=== PATIENT | female | born 1965 | race Caucasian/White ===

== ENCOUNTER → 2021-09-25 10:49 | Outpatient (CLI) | payer OTHER, SELFPAY ==
--- NOTE | ~2021-09-25 | CT_ITS ---
EXAMINATION: CT abdomen pelvis w con DATE: 09/25/2021 11:21 INDICATION: Left upper quadrant abdominal pain. Generalized abdominal pain and cramping. TECHNIQUE: Computed tomography (CT) of the abdomen and pelvis was performed with 100 CC Omnipaque 300 intravenous contrast. Automated exposure control and iterative reconstruction technique were employe d. Exam dose: 1112.93 mGy-cm total exam DLP. COMPARISON: None. FINDINGS: The lung bases are clear of infiltrate or consolidation. Mild cardiomegaly. No pericardial or pleural effusion. There is hepatic steatosis. No hepatic, splenic, pancreatic, and adrenal or renal space-occupying mas s lesion is evident. The gallbladder is present. No gallbladder wall thickening or pericholecystic fl uid or fat stranding. No bile duct or pancreatic duct dilatation. Normal caliber and mild atherosclerotic calcification of the abdominal aorta. No intraperitoneal or r etroperitoneal or pelvic mass lesion or adenopathy or ascites. Small fat-containing umbilical hernia. There is a wid[place] large fat-containing lower mid anterior abdominal wall hernia. The urinary bladder is unremarkable. Retroverted uterus. Uterus and adnexal areas are otherwise unrem arkable. Normal appendix. No bowel obstruction or intraperitoneal free air. No suspicious osteolytic or osteoblastic lesions are noted. IMPRESSION: Hepatic steatosis Retroverted uterus Large fat-containing lower ventral abdominal wall hernia Small fat-containing umbilical hernia Reviewed, dictated and finalized at [facility]. Reviewed, dictated and finalized at location [facility].
[2021-09-25 11:11] LABS: Estimated Glomerular Filt Rate > 60
== END ==
PROVIDERS: PCP Internal Medicine; Visit Provider Internal Medicine
DX: R10.12 Left upper quadrant pain (principal); K76.0 Fatty (change of) liver, not elsewhere classified; K43.9 Ventral hernia without obstruction or gangrene; K42.9 Umbilical hernia without obstruction or gangrene
CPT/HCPCS: 74177; Q9967

== ENCOUNTER → 2021-10-30 08:47 | Outpatient (CLI) | payer OTHER, SELFPAY ==
--- NOTE | ~2021-10-30 | MR_ITS ---
EXAMINATION: MR brain/brain stem wo con DATE: 10/30/2021 09:39 INDICATION: Syncope, unspecified. TECHNIQUE: Magnetic resonance imaging (MRI) of the brain and brainstem was performed without intraven ous contrast. COMPARISON: None. FINDINGS: There is no intracranial hemorrhage, acute infarction, or abnormal intracranial mass lesion . The ventricles are normal in size. The paranasal sinuses are clear. There is a small right mastoid effusion. Vertebral body heights are normal. The paranasal sinuses are clear. IMPRESSION: 1. Normal brain. Reviewed, dictated and finalized at location [facility]. IMPRESSION: 1. Normal brain.
== END ==
PROVIDERS: PCP Internal Medicine; Visit Provider Internal Medicine
DX: R55 Syncope and collapse (principal)
CPT/HCPCS: 70551

== ENCOUNTER → 2022-01-16 10:01 | Outpatient (CLI) | payer OTHER, SELFPAY ==
--- NOTE | ~2022-01-16 | US_ITS ---
EXAMINATION: US abdomen limited DATE: 01/16/2022 10:42 INDICATION: Right upper quadrant abdominal pain. TECHNIQUE: Multiple grayscale and Doppler ultrasound images of the abdomen were obtained. COMPARISON: CT abdomen and pelvis 09/25/2021 FINDINGS: The visualized portions of the head, body, and tail of the pancreas are normal. There is di ffuse hepatic steatosis. No liver surface nodularity. The gallbladder is normal in size. No gallstone s or gallbladder wall thickening. There is no sonographic Myers sign. The common duct is normal and measures 5 mm. IMPRESSION: 1. Diffuse hepatic steatosis. Reviewed, dictated and finalized at location A.
== END ==
PROVIDERS: PCP Internal Medicine; Visit Provider Surgery
DX: R10.11 Right upper quadrant pain (principal); K76.0 Fatty (change of) liver, not elsewhere classified
CPT/HCPCS: 76705

== ENCOUNTER 2022-02-21 07:25 | Outpatient (CLI) | payer OTHER, SELFPAY ==
[2022-02-21 08:05] LABS: Anion Gap 15 mmol/L (8-16); Blood Urea Nitrogen 11 mg/dL (7-17); Calcium 9.5 mg/dL (8.4-10.2); Carbon Dioxide 29 mmol/L (22-30); Chloride 97 mmol/L (98-107); Estimated Glomerular Filt Rate > 60; Glucose 110 mg/dL (65-110); Potassium 3.4 mmol/L (3.4-5.0); Sodium 141 mmol/L (137-145)
== END 2022-02-21 07:26 | disposition home or self-care (01) ==
LOC: ANHLAB 07:27
PROVIDERS: PCP Internal Medicine; Visit Provider Anesthesiology
DX: K43.0 Incisional hernia with obstruction, without gangrene (principal); I10 Essential (primary) hypertension; Z01.818 Encounter for other preprocedural examination
CPT/HCPCS: 36415; 80048; 86850; 86900; 86901

== ENCOUNTER 2022-02-25 00:09 | Day surgery (SDC) | payer OTHER, SELFPAY ==
[2022-02-18 15:35] VITALS: BMI 45.1
--- NOTE | 2022-02-18 15:36 | PC.NURSE ---
Addendum entered by Carisa Hernandez RN 02/20/22 12:30: 02/20/22 PT CALLED AND INSTRUCTED TO TAKE METOPROLOL THE MORNING OF SURGERY WITH A SIP OF WATER Original Note: Report to the Outpatient Waiting Room, entrance under the [facility] located off [facility], at time 0730 on date _02/25/22_. OR Time: __0930_. Time changes happen often and if your time is changed the preop area will call you the afternoon before. - You and your visitor will be asked to self-screen and do not enter if you have any COVID symptoms. - Only one visitor and NO children visitors are allowed at this time. - The patient visitor is requested to leave or wait in car when not with patient due to restrictions. - A mask is required within the hospital. Patients may have clear liquids (water, carbonated beverages, clear teas, apple juice) until 3 hours prior to surgery with a maximum of 20 ounces. - No food from midnight until time of surgery - Infants may have breast milk until 4 hours before surgery, formula 6 hours prior to surgery. - Children will be allowed to drink immediately following surgery. If applicable, please bring a bottle or sippy cup to assist with drinking. Juice, water, soda, and popsicles are readily available. For infants on formula, please bring formula the day of surgery. Pacifiers are allowed. Take the following medications with a SIP of water the morning of surgery: NONE Medications to discontinue per physician NONE Date to take last dose Please no make-up, nail yakut, hairspray, perfume, deodorant, or body powder the day of surgery. No jewelry (including any body piercings) or valuables the day of surgery, leave them at home. Please take a shower or bath the night before, or the morning of, surgery with HIBICLENS antibacterial soap. Wear comfortable, loose fitting clothing. Children are encouraged to wear pajamas. - Jewelry must be removed prior to entering the operating room. Rings and piercings that are not removed may be cut off. - The hospital will not accept responsibility for valuables. - Please leave all valuables, including medications, at home the day of surgery. If you are going home after surgery, a licensed bulk delivery driver must drive you home. - NO public transportation without another adult. - We recommend that an adult stay with you for 24 hours following discharge. - We also recommend that you do not drive, make important decision, drink alcoholic beverages, or take any drugs that were not prescribed by your health care provider for at least 24 hours after your discharge time. For Pediatric surgeries, we recommend two adults accompany the child home (only one inside the building at this time). Follow any additional instructions given to you from your surgeon. If you or anyone in your household have experienced Covid symptoms in the past week, please notify your surgeon or the nurse liaison at the phone number below for possible testing. Telephone instructions given to PATIENT__and asked if any additional questions and then verbalized understanding. Patient advised to call surgeon office or pre surgery nurse liaison [phone] if any additional questions.
[2022-02-25] VITALS (16 sets, daily range): BP systolic 95–138; BP diastolic 59–86; PULSE 60–87; RESP 14–18; TEMP 36.5; O2SAT 88–98
[2022-02-25] MEDS: ACETAMINOPHEN 500 MG TABLET 1000 MG PO (07:59)
[2022-02-25] MEDS: LACTATED RINGERS 1,000 ML 30 ML IV CONT ×2 (07:59→12:27)
[2022-02-25] MEDS: KETOROLAC 15 MG/ML VIAL (*BKC) IV PUSH (08:00)
--- NOTE | 2022-02-25 08:38 | WPDANESEPPF ---
Anes - Initial Pre Proc Eval Procedure: Operation Date: 02/25/22 09:30 Proposed Procedures p Laparoscopic Incarcerated Incisional Hernia Repair with Mesh, Davinci Assisted - Raul Jones DO Date/Time: 02/25/22 08:38 Surgeon: Raul Jones DO Pre Op Diagnosis: incarcerated incisional hernia Patient Data Age: 56 Gender: F Height: 1.56 m Weight: 108.9 kg Last Vital Signs Temp 36.5 C 02/25/22 07:46 Pulse 80 02/25/22 07:46 Resp 18 02/25/22 07:46 BP 133/73 02/25/22 07:46 Pulse Ox 97 02/25/22 07:46 O2 Del Method Room Air 02/25/22 07:46 Allergies Allergy/AdvReac Type Severity Reaction Status Date / Time azithromycin Allergy Mild Redness of Verified 02/18/22 15:27 Skin Home Medications Medication Instructions Recorded Confirmed Type hydrochlorothiazide 25 mg tablet 25 mg PO DAILY 12/31/21 02/25/22 History metoprolol succinate 50 mg 50 mg PO DAILY 12/31/21 02/25/22 History tablet,extended release 24 hr amoxicillin 500 mg tablet 500 mg PO DAILY 02/18/22 02/25/22 History Patient hx anesthesia problems: none Family hx anesthesia problems: none Results Review: All pre-operative results and documents have been reviewed as part of the pre-operative evaluation. FORMERLY [facility], [facility]1983 Past Medical History Medical History High cholesterol HTN (hypertension) Maternal blood transfusion first trimester Rosacea Syncope Surgical History Surgical History H/O medial meniscus repair of right knee History of delivery x3 Family History Family History Father Dementia Parkinsons Heart disease Mother Asthma Social History Social History Social History: everyday caffeine use- 1 cup of coffee daily Smoking status: Never smoker Alcohol intake: current Alcohol use details: 4 DRINKS PER YEAR Substance use: former Other substance usage details: MARIJUANA A TEEN Living arrangements: with family Additional living arrangements comments: Patient is . 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 Gender identity (if verbalized by the patient): Female Sexual Orientation (if Verbalized by the Patient): Straight or Heterosexual Anes - Eval Final PreProcedure Day of Procedure 02/25/22 08:38 Patient weight: morbidly obese Heart: regular rate and rhythm Lungs: clear to auscultation Airway: Mallampati scale class II Neurological: alert and oriented Last oral intake: >/= 8 hours ASA classification: III Emergent: no Anesthetic plan: proceed Anesthesia type and monitoring: general ETT and standard monitoring Results Review: All pre-operative results and documents have been reviewed as part of the pre-operative evaluation. Informed Consent: The patient's anesthetic plan and its attendant risks and benefits were discussed with the patient/family/POA. Questions were solicited and answers provided to the satisfaction of the patient/family/POA.
--- NOTE | 2022-02-25 09:13 | PM.IMHP ---
H&P: HPI History of Present Illness Date/Time: 02/25/22 09:13 Chief Complaint: Incisional hernia Narrative: This is a 56-year-old woman who presents for incarcerated incisional hernia repair. She denies any changes since last being seen in the office. Review of Systems Review of Systems: All systems reviewed & are unremarkable except as noted in HPI and below Constitutional: Constitutional: Denies chills, Denies fever(s), Denies headache(s) and Denies weight loss Eyes: Eyes: Denies change in vision ENT: Denies dizziness, Denies headache(s), Denies neck mass and Denies throat swelling Cardiovascular: Cardiovascular: Denies chest pain, Denies lightheadedness and Denies dyspnea Respiratory: Respiratory: Denies cough, Denies dyspnea and Denies wheezing Gastrointestinal: Gastrointestinal: Denies abdominal pain, Denies change in bowel habits, Denies nausea and Denies vomiting Genitourinary: Genitourinary: Denies hematuria and Denies dysuria Musculoskeletal: Musculoskeletal: Reports as per HPI Integumentary/Breasts: Skin/Breast: Reports as per HPI Neurologic: Denies dizziness and Denies headache(s) Allergic/Immunologic: Allergic/Immunologic: Denies throat swelling and Denies wheezing PMFSH Past Medical History Medical History High cholesterol HTN (hypertension) Maternal blood transfusion first trimester Rosacea Syncope Surgical History Surgical History H/O medial meniscus repair of right knee History of delivery x3 Family History Family History Father Dementia Parkinsons Heart disease Mother Asthma Social History Social History Social History: everyday caffeine use- 1 cup of coffee daily Smoking status: Never smoker Alcohol intake: current Alcohol use details: 4 DRINKS PER YEAR Substance use: former Other substance usage details: MARIJUANA A TEEN Living arrangements: with family Additional living arrangements comments: Patient is . 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 Gender identity (if verbalized by the patient): Female Sexual Orientation (if Verbalized by the Patient): Straight or Heterosexual Meds Home Medications and Allergies Home Medications Medication Instructions Recorded Confirmed Type hydrochlorothiazide 25 mg tablet 25 mg PO DAILY 12/31/21 02/25/22 History metoprolol succinate 50 mg 50 mg PO DAILY 12/31/21 02/25/22 History tablet,extended release 24 hr amoxicillin 500 mg tablet 500 mg PO DAILY 02/18/22 02/25/22 History Allergies Allergy/AdvReac Type Severity Reaction Status Date / Time azithromycin Allergy Mild Redness of Verified 02/18/22 15:27 Skin Vital Signs Vital Signs - 24 hr 02/25/22 07:46 Temperature 36.5 C Pulse Rate 80 Respiratory Rate 18 Blood Pressure 133/73 Pulse Oximetry 97 Oxygen Delivery Room Air Exam Const: General: no acute distress and alert Orientation/consciousness: patient oriented x3 HENMT: Head: normocephalic and atraumatic Ears: hearing grossly normal bilaterally Face/Nose/Sinus: Normal nares present Mouth: Yes Normal oral and palatal mucosa present Eyes: Periorbital: periorbital findings normal Sclera: sclerae normal EOM: EOMs intact bilaterally Neck: Neck: normal visual inspection, no lymphadenopathy and trachea midline Chest: Chest palpation & inspection: normal inspection of the chest Resp: Effort & Inspection: normal respiratory effort Auscultation: clear to auscultation bilaterally Cardio: Jugular venous distension: no JVD Rate: regular rate Rhythm: regular rhythm Heart sounds: S1 normal heart sound present and S2 normal heart sound present Perip
--- NOTE | 2022-02-25 09:15 | WPDHPUPDATE1 ---
History and Physical Update Update Date/Time: 02/25/22 09:15 History and Physical has been reviewed, including an updated exam of the patient. There are NO changes in the patient's condition. Risks, benefits, and alternatives have been discussed and questions answered. Patient agrees to proceed with procedure.
[2022-02-25] MEDS: ceFAZolin 2 GM/D5W 50 ML 2 GM/50 ML BAG IVPB (09:33)
--- NOTE | 2022-02-25 12:17 | W.PM.PROC2 ---
Procedure Note - Detailed Date of Procedure 02/25/22 Pre-op Diagnosis incarcerated incisional hernia Post-op Diagnosis Same Procedure Performed Laparoscopic Incarcerated Incisionall Hernia Repair with Mesh, da Ezio assisted Surgeon Raul Jones, DO Anesthesia General and Local (Exparel) Indications This is a 56-year-old woman who presents with lower abdominal pain over the past several months. She had not noticed a bulge before but had been losing some weight and noticed a slight fullness in the lower abdomen. A CT of her abdomen and pelvis showed evidence of a large fat containing hernia in the lower midline. This appeared to be in the location of her prior C-sections. Discussions were made with the patient about treatment options and decision was made to proceed with robotic assisted laparoscopic incarcerated incisional hernia repair with mesh. Findings Laparoscopic incarcerated incisional hernia repair was performed. The patient was found to have a 5 cm x 5 cm hernia incarcerated with omentum a in the lower midline. The incarcerated omentum was carefully dissected free. Patient did have a slight diastasis of her lower rectus muscles as well associated with this. I entered in to the space of Retzius to dissect the dome of the bladder down to allow adequate overlap with the mesh. The hernia defect was then closed using #1 Stratafix running suture starting from the cephalad and caudad limits and meeting in the middle. A 20 cm x [address] mesh was then placed within the abdominal cavity. The mesh was secured to the abdominal wall circumferentially using 2 0 V lock running absorbable suture. No specimens were obtained for pathology. Description of Procedure Procedure as well as risks, benefits, and alternatives were discussed with the patient. Written consent was obtained and placed in chart prior to procedure. Patient was brought back to surgical suite. She was placed supine on operating table. Time-out was done to confirm patient and procedure. She he then intubated by the anesthesia department. Her abdomen was prepped and draped in sterile fashion using chlorhexidine prep. A 5 millimeter incision was made in the left upper quadrant, and a 5 millimeter Optiview trocar was advanced through the abdominal layers under direct visualization. Once inside the abdominal cavity, carbon dioxide insufflation was used to create a pneumoperitoneum. Her abdomen was inspected. An 8 millimeter incision was made in the right upper quadrant, and an 8 millimeter robotic trocar was placed under direct visualization. Another 8 millimeter incision was made in the supraumbilical region, and an 8 millimeter robotic trocar was placed under direct visualization. Exparel was infiltrated along the lateral abdominal bills to perform a transversus abdominis plane block bilaterally. The 5 millimeter port was removed, the incision was extended to 12 millimeters, and a 12 millimeter air seal port was placed under direct visualization. A Homero-Enriquez cone was also used to place an 0-Vicryl simple interrupted suture at this trocar site. The robotic arms were brought up to the patient's bedside and secured to the ports. The camera and instruments were inserted, and I then moved over to the robotic console and took control of the camera and instruments. After careful thorough inspection of the abdominal cavity, I began my dissection at the hernia. The incarcerated omentum was carefully dissected free from within hernia sac and was reduced completely. I then measured the hernia size. The hernia measured 5 cm x 5 cm. The fascia was closed using an 1-Stratafix running suture in a vertical fashion. A 20 cm x [address] mesh was then placed within the abdominal cavity. This was oriented vertically with the mesh centered on the hernia defect. The mesh was then secured circumferentially to the abdominal wall using 2 0 V lock running absorbable suture. T
[2022-02-25] MEDS: fentaNYL CITRATE INJ (*CRX) 100 MCG/2 ML VIAL 25 MCG IV PUSH ×4 (13:30→14:08)
[2022-02-25] MEDS: oxyCODONE HCL (*CRX) 5 MG TAB IR PO (14:26)
[2022-02-25] MEDS: ONDANSETRON INJ 4 MG/2 ML VIAL IV PUSH (15:09)
== END 2022-02-25 16:30 | disposition home or self-care (01) ==
PROVIDERS: PCP Internal Medicine; Visit Provider Surgery
PROC: (CPT 49655; principal; 2022-02-25 09:30)
DX: K43.0 Incisional hernia with obstruction, without gangrene (principal); I10 Essential (primary) hypertension; E78.00 Pure hypercholesterolemia, unspecified; E66.01 Morbid (severe) obesity due to excess calories; Z68.41 Body mass index [BMI] 40.0-44.9, adult
CPT/HCPCS: 49655; S2900; 36415; 80048; 86850; 86900; 86901; A9270; C1781; C9290; J0330; J0690; J1100; J1170; J1885; J2250; J2405; J2704; J2710; J3010; J7120